=== PATIENT | male | born 1955 | race Caucasian/White ===

== ENCOUNTER 2017-03-24 12:54 | Emergency (ER) | payer BC ==
[~2017-03-24] VITALS: Ht 185.4 cm; Wt 79.4 kg
[~2017-03-24 12:54] MED LIST: AUGMENTIN 875 M1 TAB PO; CIPRODEX 0.3%-7.5 ML OT; DAYPRO600 M1 PO; KEFLEX500 M1 PO; NAPROSYN500 MG PO; NORCO 325 MG-51 TAB PO; ROBAXIN750 MG PO; TRAMADOL HCL50 MG PO
[2017-03-24] MEDS ORDERED: CLINDAMYCIN150 MG PO (13:10)
== END 2017-03-24 13:24 | disposition home or self-care (01) ==
LOC: ED 12:54
DX: S69.92XA Unspecified injury of left wrist, hand and finger(s), initial encounter (principal); R03.0 Elevated blood-pressure reading, without diagnosis of hypertension; F17.200 Nicotine dependence, unspecified, uncomplicated; W45.8XXA Other foreign body or object entering through skin, initial encounter; Y93.89 Activity, other specified; Y92.9 Unspecified place or not applicable; Y99.9 Unspecified external cause status